=== PATIENT | male | born 1990 | race Two or more races ===

== ENCOUNTER 2022-03-09 15:40 | Emergency (ER) | payer MEDICAID, OTHER ==
[~2022-03-09] VITALS: Ht 172.7 cm; Wt 61.4 kg
[2022-03-09 16:46] LABS: Urine Bacteria NONE SEEN /hpf (None Seen); Urine Blood 2+ /uL (Negative); Urine Hyaline Cast MOD /lpf (0 - 2); Urine Mucus FEW (None Seen); Urine Specific Gravity 1.016 (1.001-1.035); Urine WBC 1 /hpf (0 - 3)
[2022-03-09 16:58] LABS: Amphetamine Screen, Urine NEGATIVE (NEGATIVE); Barbiturate Scree,Urine NEGATIVE (NEGATIVE); Benzodiazephine Screen, Urine NEGATIVE (NEGATIVE); Cannabinoid Screen, Urine POSITIVE (NEGATIVE); Cocaine Screen, Urine NEGATIVE (NEGATIVE); Opiate Scree,Urine NEGATIVE (NEGATIVE); Phencyclidine Screen, Urine NEGATIVE (NEGATIVE)
[2022-03-09 17:28] LABS: Basophils # (auto) 0 10 ^3/uL (0-0.2); Basophils % (auto) 0.3 % (0.0-2.0); Eosinophils # (auto) 0 10 ^3/uL (0-0.8); Hematocrit 41.8 % (41.0-53.0); Lymphocytes # (auto) 0.3 10 ^3/uL (0.4-5.4); Lymphocytes % (auto) 3.6 % (10.0-50.0); Mean Corpuscular Hemoglobin 31.9 pg (28.0-32.0); Mean Corpuscular Hgb Conc. 33.4 g/dL (32.0-36.0); Mean Corpuscular Volume 95.5 fL (80.0-100.0); Monocytes # (auto) 0.9 10 ^3/uL (0-1.3); Monocytes % (auto) 10.1 % (0.0-12.0); Neutrophils # (auto) 7.8 10 ^3/uL (1.6-8.6); Red Blood Cells 4.38 10^6/uL (4.5-5.90); Red Cell Distribution Width 13.3 % (11.8-14.3); White Blood Cell 9.1 10^3/uL (4.4-10.8)
[2022-03-09 17:44] LABS: Albumin 4.1 g/dL (3.4-5.0); Calcium 9.1 mg/dL (8.5-10.1); Potassium 3.5 mmol/L (3.5-5.1)
[2022-03-09 17:45] LABS: BUN/Creatinine Ratio 7.3
[2022-03-09 17:49] LABS: Bilirubin, Total 1.8 mg/dL (0.2-1.0); Total Protein 8.2 g/dL (6.4-8.2)
[2022-03-09 19:03] LABS: Blood Alcohol < 3.0 mg/dL (0-5); Magnesium 2.5 mg/dL (1.6-2.6)
[2022-03-09] MEDS ORDERED: LORazepam 2MG/ML-1ML VIAL IV ONE (22:45)
[2022-03-09] MEDS ORDERED: FOLIC ACID 1 MG in D5W 5% 50 ML INJ ONE (22:45)
[2022-03-09] MEDS ORDERED: THIAMINE 100mg/ml INJ (200mg/2ml VIAL) IV ONE (22:45)
[2022-03-09] MEDS ORDERED: LACTATED RINGER'S 2,000 ML IV ONE (22:45)
[2022-03-10 09:10] VITALS: BP 132/90
== END 2022-03-10 09:29 | disposition short-term general hospital (02) ==
LOC: ER 15:40 → EDBD 15:40 → ER 03-10 09:29
DX: F10.231 Alcohol dependence with withdrawal delirium (principal); R41.82 Altered mental status, unspecified; R56.9 Unspecified convulsions; Z20.822 Contact with and (suspected) exposure to COVID-19; Y90.8 Blood alcohol level of 240 mg/100 ml or more
CPT/HCPCS: 36415; 70450; 71045; 80053; 80307; 80320; 81001; 83605; 83735; 84484; 85025; 87426; 96361; 96365; 96375; 99285; J1953; J2060; J3411; J7060